=== PATIENT | female | born 1945 | race Caucasian/White ===

== ENCOUNTER 2018-02-11 14:39 | Outpatient (CLI) | payer MEDICARE ==
--- NOTE | 2018-02-11 16:57 | RAD ---
RIGHT FEMUR TWO VIEWS: 02/11/18 HISTORY: Left pain. Knee fracture. COMPARISON: 10/04/17. FINDINGS: Overlying backboard artifact obscures detail. Mild degenerative changes of the right hip. Femoral sh aft is intact. Impacted oblique fracture of the medial and lateral femoral condyles is predominantly transverse and unchanged in degree of impaction and alignment from the previous study. Periosteal reaction and abund ant callus formation are now apparent. Fluid distends the suprapatellar bursa. Osseous structures are severely demineralized. IMPRESSION: Unchanged alignment of the partially healing impacted distal right femoral fracture involving the con dyles. Osteoporosis. POS: [facility]
== END 2018-02-11 14:40 | disposition home or self-care (01) ==
LOC: MADRAD 14:39
PROVIDERS: ATTEND Orthopaedic Surgery
DX: S72.431D Displaced fracture of medial condyle of right femur, subsequent encounter for closed fracture with routine healing (principal); S72.421D Displaced fracture of lateral condyle of right femur, subsequent encounter for closed fracture with routine healing; M81.0 Age-related osteoporosis without current pathological fracture

== ENCOUNTER 2018-03-01 15:13 | Outpatient (CLI) | payer MEDICARE | END 2018-03-01 15:14 | disposition home or self-care (01) | LOC: MADLABBHPM 15:13 | PROVIDERS: ATTEND Family Medicine | DX: R11.2 Nausea with vomiting, unspecified (principal) | CPT/HCPCS: 87804 ==

== ENCOUNTER 2018-03-10 10:09 | Emergency (ER) | payer MEDICARE ==
[2018-03-10] MEDS ORDERED: Sodium Chloride 0.9% 100 ML ONE (10:31)
[2018-03-10] MEDS ORDERED: cefTRIAXone\\ROCEPHIN 1 GM VIAL ONE (10:31)
[2018-03-10 10:49] LABS: #Basophils 0.1 thou/uL (0.0-0.2); #Eosinphils 0.1 thou/uL (0.0-0.7); #Lymphocytes 1.5 thou/uL (1.20-3.40); #Monocytes 0.6 thou/uL (0.11-0.59); #Neutrophils 14.3 thou/uL (1.40-6.50); %Basophils 0.5 % (0.0-1.0); %Eosinophils 0.4 % (0.0-10.0); %Lymphocytes 9.2 % (21.0-51.0); %Monocytes 3.8 % (0.0-10.0); %Neutrophils 86.2 % (42.0-75.0); Mean Corpuscular Hemoglobin 31.4 pg (27.0-31.0); Mean Corpuscular Volume 98.1 fL (78.0-98.0); Platelet Count 218 thou/uL (130-400); RBC Distribution Width 14.2 % (11.5-14.5); Red Blood Cell (RBC) Count 4.78 mill/uL (4.20-5.40); White Blood Cell (WBC) Count 16.6 thou/uL (4.8-10.8)
[2018-03-10 10:59] LABS: INR-International Normal Ratio 1.4; Prothrombin Time 17.1 SEC (12.0-14.7)
[2018-03-10 11:03] LABS: ALT (SGPT) 10 U/L (8-55); AST (SGOT) 12 U/L (5-34); Albumin 3.3 g/dL (3.4-4.8); Alkaline Phosphatase 56 U/L (40-150); Anion Gap 17 mmol/L (10-20); BUN (Urea Nitrogen) 41 mg/dL (9.8-20.1); Bilirubin, Total 0.9 mg/dL (0.2-1.2); Calc. Creatinine Clearance 0 mL/min (70-130); Calcium 11.2 mg/dL (7.8-10.44); Carbon Dioxide 35 mmol/L (23-31); Chloride 95 mmol/L (98-107); Estimated GFR-MDRD 34; Globulin 4.4 g/dL (2.4-3.5); Glucose 142 mg/dL (83-110); Potassium 3.7 mmol/L (3.5-5.1); Protein, Total 7.7 g/dL (6.0-8.3); Sodium 143 mmol/L (136-145)
== END 2018-03-10 11:54 | disposition short-term general hospital (02) ==
LOC: MADERS 10:09
DX: L03.115 Cellulitis of right lower limb (principal); E03.9 Hypothyroidism, unspecified; I11.0 Hypertensive heart disease with heart failure; I50.9 Heart failure, unspecified; E11.9 Type 2 diabetes mellitus without complications; Z79.899 Other long term (current) drug therapy; Z79.82 Long term (current) use of aspirin; Z86.711 Personal history of pulmonary embolism
CPT/HCPCS: 36415; 80053; 83605; 85025; 85610; 96365; J0696; J7050

== ENCOUNTER 2018-11-14 08:48 | Outpatient (CLI) | payer MEDICARE ==
[2018-11-14 10:01] LABS: Bilirubin Negative (Negative); Blood, Urine Large (Negative); Clarity Cloudy (Clear); Glucose, Urine (Dipstick) >=1000 mg/dL (Negative); Leukocyte Large (Negative); Nitrite Negative (Negative); Protein, Urine (Dipstick) 100 mg/dL (Neg-Trace); Urobilinogen 0.2 mg/dL (Less than 2)
[2018-11-14 10:28] LABS: Bacteria/HPF 3+ HPF (None Seen); RBC/HPF Greater than 50 HPF (0-3); WBC/HPF Greater Than 50 HPF (0-3)
== END 2018-11-14 08:49 | disposition home or self-care (01) ==
LOC: MADLAB 08:48
PROVIDERS: ATTEND Family Medicine
DX: N18.3 Chronic kidney disease, stage 3 (moderate) (principal); N39.0 Urinary tract infection, site not specified
CPT/HCPCS: 81001; 87077; 87086